=== PATIENT | male | born 1940 | race Two or more races ===

== ENCOUNTER 2017-10-09 08:13 | Day surgery (SDC) | payer OTHER | END 2017-10-09 14:50 | disposition home or self-care (01) | LOC: AMB-ENDOS 08:13 → EDBD 13:15 → AMB-ENDOS 13:15 → CIR.AMB 13:15 → AMB-ENDOS 14:50 | DX: D12.2 Benign neoplasm of ascending colon (principal); K64.1 Second degree hemorrhoids ==

== ENCOUNTER 2017-11-02 11:04 | Outpatient (CLI) | payer OTHER | END 2017-11-02 11:34 | disposition home or self-care (01) | LOC: LAB 11:04 → RAD 11:04 → LAB 11:34 | DX: I11.9 Hypertensive heart disease without heart failure (principal); E78.2 Mixed hyperlipidemia; Z01.810 Encounter for preprocedural cardiovascular examination; I11.0 Hypertensive heart disease with heart failure ==

== ENCOUNTER 2017-11-20 06:59 | Day surgery (SDC) | payer OTHER ==
[~2017-11-20 06:59] MED LIST: LISINOPRIL10 MG PO; SIMVASTATIN40 MG PO; TAMS0.4C PO; [UNRECOGNIZED DRUG - OTHER]
== END 2017-11-20 17:00 | disposition home or self-care (01) ==
LOC: CIR.AMB 06:59
DX: N43.2 Other hydrocele (principal)

== ENCOUNTER → 2017-11-30 15:16 | Outpatient (CLI) | payer OTHER | END | disposition home or self-care (01) | LOC: LAB 15:16 | DX: L02.215 Cutaneous abscess of perineum (principal) ==